=== PATIENT | female | born 1940 | race Caucasian/White ===

== ENCOUNTER 2021-03-29 16:20 | Inpatient (IN) | payer MEDICARE ==
[~2021-03-29] VITALS: Ht 162.6 cm; Wt 45.0 kg
--- NOTE | 2021-03-29 16:40 | NUR ---
PT TRANSFER FROM [facility], ABSCESS/CELLULITIS TO RIGHT FACE scratched face 7 days ago. superficial redness/swelling around right eye resulted. Took amoxicillin for 1 day (gi upset), switch to keflex. redness improved until this am when large growth to right nose presented as well as increased redness/swelling no fever, no tachycardia/vision unencumbered b/p noted to be quite hypertensive "I'm just nervous about the potential of needing surgery/staying overnight."
--- NOTE | 2021-03-29 17:00 | NUR ---
blood pressure self resolved
[2021-03-29] MEDS ORDERED: SODIUM CHLORIDE FLUSH 10ML SYR IVF ONE (17:30)
[2021-03-29 17:31] LABS: BASOPHILS % (AUTO) 0 % (0-1); EOSINOPHILS % (AUTO) 1 % (1-7); LYMPHOCYTES % (AUTO) 17 % (22-44); MEAN CORPUSCULAR HEMOGLOBIN 27.6 pg (27.0-34.8); MEAN CORPUSCULAR HGB CONC 33.3 g/dL (32.4-35.8); MEAN PLATELET VOLUME 8.5 fL (7.4-10.4); MONOCYTES % (AUTO) 7 % (2-9); NEUTROPHILS % (AUTO) 75 % (42-75); PLATELET COUNT 338 x10^3/uL (130-400); RED BLOOD COUNT 5.36 x10^6/uL (3.82-5.3); RED CELL DISTRIBUTION WIDTH 13.6 % (9.6-15.2)
[2021-03-29 17:41] LABS: ALANINE AMINOTRANSFERASE 19 U/L (12-78); ALBUMIN 3.6 g/dL (3.4-5.0); ANION GAP 6 mmol/L (5-15); CALCIUM 9.1 mg/dL (8.5-10.1); CHLORIDE 105 mmol/L (98-107); CREATININE 0.79 mg/dL (0.55-1.02)
[2021-03-29 17:43] LABS: ALKALINE PHOSPHATASE 143 U/L (45-117); BILIRUBIN,TOTAL 0.5 mg/dL (0.2-1.0); TOTAL PROTEIN 8.1 g/dL (6.4-8.2)
--- NOTE | 2021-03-29 17:59 | NUR ---
Erp asked needing wound culture/infection testing/treatment orders. Erp responded "I'm happy with her antibiotic situation as she has been taking keflex. I need the CT then will call in ENT or optho or plastic to i/d the growth." patient updated on estimated poc
[2021-03-29] MEDS ORDERED: LORazepam 2 MG/ML, 1ML IVPush ONE (18:00)
[2021-03-29] MEDS ORDERED: LORazepam 0.5MG TABLET ONE (18:25)
[2021-03-29] MEDS ORDERED: ACETAMINOPHEN 325 MG TABLET ONE (18:25)
[2021-03-29] MEDS ORDERED: ACETAMINOPHEN 325 MG TABLET PO ONE (18:30)
[2021-03-29] MEDS ORDERED: OMNIPAQUE 350 MG/ML, 75ML BOTTLE ONE (18:38)
--- NOTE | 2021-03-29 18:54 | NUR ---
ERP MADE AWARE OF INCREASE IN MASS TO RIGHT FACE WELL INCREASE IN PAIN pATIENT MEDICATED FOR PAIN/ANXIETY REPORT TO [facility]
[2021-03-29] MEDS ORDERED: LORazepam 0.5MG TABLET PO ONE (19:00)
[2021-03-29] MEDS ORDERED: PIPERACILLIN/TAZO 3.375 GM in DEXTROSE 5% 50 ML IVPB ONE (19:30)
[2021-03-29] MEDS ORDERED: VANCOMYCIN PER PHARMACY MC ONE (19:30)
--- NOTE | 2021-03-29 19:45 | NUR ---
MD BACK TO ROOM TO UPDATE PT ON STATUS. PT TO BE ADMITTED AND ANTIBIOTICS TO BE GIVEN. PT RESTING COMFORTABLY. AIRWAY INTACT, GOOD AERATION AND OXYGENATION.
[2021-03-29] MEDS ORDERED: SODIUM CHLORIDE FLUSH 10ML SYR IVF PRN (20:00)
[2021-03-29] MEDS ORDERED: VANCOMYCIN 1,000 MG in SODIUM CHLORIDE 0.9% 100 ML IV ONE (20:00)
[2021-03-29] MEDS ORDERED: MORPHINE SULFATE 4 MG/ML, 1ML ONE (20:44)
[2021-03-29] MEDS ORDERED: ONDANSETRON 2MG/ML, 2ML ONE (20:44)
[2021-03-29] MEDS ORDERED: VANCOMYCIN PER PHARMACY MC PRN (21:00)
[2021-03-29] MEDS ORDERED: PIPERACILLIN/TAZO 3.375 GM in DEXTROSE 5% 50 ML IV SCH (21:00)
[2021-03-29] MEDS ORDERED: ACETAMINOPHEN 325 MG TABLET PO PRN (21:00)
[2021-03-29] MEDS ORDERED: ONDANSETRON 2MG/ML, 2ML IVPush ONE (21:00)
[2021-03-29] MEDS ORDERED: ENALAPRILAT 1.25 MG/ML, 2ML IVPush PRN (21:00)
[2021-03-29] MEDS ORDERED: morphine SULFATE 10 MG/ML, 1ML IVPush PRN (21:00)
[2021-03-29] MEDS ORDERED: ONDANSETRON 2MG/ML, 2ML IVPush PRN (21:00)
[2021-03-29] MEDS ORDERED: MORPHINE SULFATE 4 MG/ML, 1ML IVPush PRN (21:00)
--- NOTE | 2021-03-29 21:02 | NUR ---
OPTHOMOLAGY TO ROOM, AND WORKING TO DRAIN THE ABCESS ON PTS RIGHT SIDE OF HER NOSE. PT GIVEN PAIN AND ANTI NAUSEA MEDS AFTER REQUEST DUE TO PAIN ON DRAINAGE. PT TOLERATING WELL AFTERWARDS. PT GETS UP TO THE BATHROOM ON HER OWN AND IS MOBILE, PRIOR TO PAIN MEDS.
--- NOTE | 2021-03-29 21:22 | NUR ---
PT NOT TO HAVE SURGERY SO NOT NPO STATUS. PT PROVIDED A SANDWICH AND CHIPS TO TAKE WITH HER ON ADMISSION TO HER ROOM UPSTAIRS. PT A&OX4, NO ACUTE DISTRESS, AND PTS FAMILY IS GOING HOME FOR THE NIGHT AND WILL BE BACK AT 0800 TOMORROW.
--- NOTE | 2021-03-29 21:25 | NUR ---
PT TO BE TRANSPORTED TO FLOOR WITHOUT INCIDENT.
[2021-03-29 22:22] VITALS: BP 169/78
[2021-03-29] MEDS ORDERED: PHARMACOKINETIC CONSULTATION MC ONE (22:30)
[2021-03-29] MEDS ORDERED: PHARMACOKINETIC MONITORING MC PRN (22:30)
[2021-03-30] MEDS ORDERED: PHARMACY INSTRUCTION MC PRN (02:00)
[2021-03-30] MEDS: AMPICILLIN/SULBACTAM 3 GM in SODIUM CHLORIDE 0.9% 100 ML IV SCH ×4 (02:32→19:56)
[2021-03-30 02:40] VITALS: BP 149/77
[2021-03-30] MEDS: MOXIFLOXACIN OPHTH O.5%, 3ML RIGHTEYE SCH ×4 (02:50→19:56)
[2021-03-30] MEDS: DORZOLAMIDE OPHTH 2%, 10ML EACHEYE SCH ×4 (02:50→19:53)
[2021-03-30 05:42] LABS: BASOPHILS % (AUTO) 0 % (0-1); EOSINOPHILS % (AUTO) 1 % (1-7); LYMPHOCYTES % (AUTO) 13 % (22-44); MEAN CORPUSCULAR HEMOGLOBIN 27.8 pg (27.0-34.8); MEAN CORPUSCULAR HGB CONC 33.4 g/dL (32.4-35.8); MEAN PLATELET VOLUME 8.4 fL (7.4-10.4); MONOCYTES % (AUTO) 7 % (2-9); NEUTROPHILS % (AUTO) 79 % (42-75); PLATELET COUNT 297 x10^3/uL (130-400); RED BLOOD COUNT 4.71 x10^6/uL (3.82-5.3); RED CELL DISTRIBUTION WIDTH 13.4 % (9.6-15.2)
[2021-03-30 05:52] LABS: ANION GAP 2 mmol/L (5-15); CALCIUM 8.6 mg/dL (8.5-10.1); CHLORIDE 106 mmol/L (98-107); CREATININE 0.79 mg/dL (0.55-1.02)
[2021-03-30 06:34] VITALS: BP 130/71
[2021-03-30] MEDS: SENNA/DOCUSATE TABLET PO SCH (08:39)
[2021-03-30 14:19] VITALS: BP 138/69
[2021-03-30 19:45] VITALS: BP 126/71
[2021-03-30] MEDS ORDERED: VANCOMYCIN 1,000 MG in SODIUM CHLORIDE 0.9% 100 ML IV ONE (21:30)
[2021-03-31 01:54] VITALS: BP 160/70
[2021-03-31] MEDS: AMPICILLIN/SULBACTAM 3 GM in SODIUM CHLORIDE 0.9% 100 ML IV SCH ×2 (01:54→08:53)
[2021-03-31] MEDS: SENNA/DOCUSATE TABLET PO SCH (08:50)
[2021-03-31] MEDS: MOXIFLOXACIN OPHTH O.5%, 3ML RIGHTEYE SCH (08:50)
[2021-03-31] MEDS: DORZOLAMIDE OPHTH 2%, 10ML EACHEYE SCH (08:50)
[2021-03-31 10:20] VITALS: BP 160/73
[2021-03-31] MEDS ORDERED: CEPH500T PO (11:26)
[2021-03-31] MEDS ORDERED: MOXI3DRO11 RIGHTEYE (11:26)
[2021-03-31] MEDS ORDERED: VANCOMYCIN 1,000 MG in SODIUM CHLORIDE 0.9% 100 ML IV SCH (16:00)
== END 2021-03-31 12:05 | disposition home or self-care (01) | DRG 872 ==
LOC: ED 16:30 → EDIP 19:47 → 4NE 21:55
PROVIDERS: ADMIT Family Medicine; ATTEND Family Medicine
DX: A41.9 Sepsis, unspecified organism (principal); L03.211 Cellulitis of face; I10 Essential (primary) hypertension; I71.4 Abdominal aortic aneurysm, without rupture; H04.001 Unspecified dacryoadenitis, right lacrimal gland; J44.9 Chronic obstructive pulmonary disease, unspecified; H40.9 Unspecified glaucoma; Z87.891 Personal history of nicotine dependence; Z80.0 Family history of malignant neoplasm of digestive organs; Z90.710 Acquired absence of both cervix and uterus; Z98.49 Cataract extraction status, unspecified eye
CPT/HCPCS: 36415; 70487; 71045; 80048; 80053; 80202; 83605; 85025; 87040; 87070; 87205; 93005; 96374; 96375; G0378; J0295; J2405; J2543; J3370; Q9967; J2270